=== PATIENT | male | born 1930 | race Two or more races ===

== ENCOUNTER 2018-01-03 14:53 | Inpatient (IN) | payer MEDICARE, OTHER ==
[~2018-01-03] VITALS: Ht 165.1 cm; Wt 84.6 kg
[2018-01-03 14:58] VITALS: Ht 165.1 cm; Wt 84.6 kg
[2018-01-03 16:18] LABS: UA SPECIFIC GRAVITY 1.025 (1.005-1.035); microscopic required? YES; urine erythrocyte 1+ (NEGATIVE)
[2018-01-03 16:25] LABS: BASOPHIL % 0.2 % (0-2); PLATELET COUNT 192 x10^3mcL (130-400)
[2018-01-03 16:27] LABS: AMPHETAMINE QUAL UR NONE DETECTED (See below)
[2018-01-03 16:28] LABS: CALCIUM 8.6 mg/dL (8.5-10.1); CARBON DIOXIDE 24.6 mmol/L (21-32); CHLORIDE SERUM 104 mmol/L (98-107); CREATININE SERUM 1.4 mg/dL (0.7-1.3); GLUCOSE SERUM 155 mg/dL (74-106); POTASSIUM SERUM 3.9 mmol/L (3.5-5.1); SODIUM SERUM 142 mmol/L (136-145)
[2018-01-03 16:29] LABS: RED CELL DISTRIBUTION WIDTH 15.2 % (11.5-14.5)
[2018-01-03 16:40] LABS: ALBUMIN 3.4 g/dL (3.4-5.0); ALKALINE PHOSPHATASE 208 U/L (46-116); ALT/SGPT 193 U/L (16-63); AST/SGOT 402 U/L (15-37); BILIRUBIN TOTAL 3.04 mg/dL (0.20-1.00); FREE T4 1.56 ng/dL (0.76-1.46); MAGNESIUM 2.1 mg/dL (1.8-2.4); TOTAL PROTEIN, SERUM 6.7 g/dL (6.4-8.2)
[2018-01-03 17:21] LABS: LIPASE 6291 IU/L (73-393)
[2018-01-03 18:37] LABS: T3 TOTAL 1.1 ng/mL
[2018-01-03 18:46] LABS: FREE T4 1.55 ng/dL (0.76-1.46); FREE THYROXINE INDEX 3.9 ug/dL (1.4-4.5); T4(THYROXINE) 10.3 ug/dL (4.7-13.3)
[2018-01-03 18:59] LABS: CHOLESTEROL/HDL RATIO 3.2; PHOSPHOROUS 3.4 mg/dL (2.5-4.9)
[2018-01-03 19:11] VITALS: BP 124/65
[2018-01-04 05:11] VITALS: BP 103/65
[2018-01-04 06:53] LABS: BASOPHIL % 0.1 % (0-2); PLATELET COUNT 182 x10^3mcL (130-400)
[2018-01-04 07:00] LABS: CALCIUM 8.3 mg/dL (8.5-10.1); CARBON DIOXIDE 25.4 mmol/L (21-32); CHLORIDE SERUM 105 mmol/L (98-107); CREATININE SERUM 1.3 mg/dL (0.7-1.3); GLUCOSE SERUM 152 mg/dL (74-106); PHOSPHOROUS 2.8 mg/dL (2.5-4.9); POTASSIUM SERUM 3.9 mmol/L (3.5-5.1); SODIUM SERUM 140 mmol/L (136-145)
[2018-01-04 07:03] LABS: RED CELL DISTRIBUTION WIDTH 14.8 % (11.5-14.5)
[2018-01-04 09:10] VITALS: BP 104/66
[2018-01-04 14:24] VITALS: BP 148/73
[2018-01-04 17:12] VITALS: BP 120/71
[2018-01-04 20:28] VITALS: BP 119/69
[2018-01-05 04:47] VITALS: BP 127/81
[2018-01-05 06:26] LABS: BASOPHIL % 0.3 % (0-2); PLATELET COUNT 158 x10^3mcL (130-400)
[2018-01-05 06:57] LABS: ALBUMIN 2.6 g/dL (3.4-5.0); ALKALINE PHOSPHATASE 156 U/L (46-116); ALT/SGPT 171 U/L (16-63); AMYLASE 48 U/L (25-115); AST/SGOT 139 U/L (15-37); BILIRUBIN TOTAL 2.1 mg/dL (0.20-1.00); CALCIUM 7.8 mg/dL (8.5-10.1); CARBON DIOXIDE 25.3 mmol/L (21-32); CHLORIDE SERUM 105 mmol/L (98-107); CREATININE SERUM 1.1 mg/dL (0.7-1.3); GLUCOSE SERUM 131 mg/dL (74-106); LIPASE 179 IU/L (73-393); POTASSIUM SERUM 3.7 mmol/L (3.5-5.1); SODIUM SERUM 138 mmol/L (136-145); TOTAL PROTEIN, SERUM 5.8 g/dL (6.4-8.2)
[2018-01-05 09:44] VITALS: BP 117/81
[2018-01-05 14:01] VITALS: BP 128/82
[2018-01-05 17:10] VITALS: BP 141/81
[2018-01-05 20:23] VITALS: BP 146/86
[2018-01-06 06:04] LABS: BASOPHIL % 0.4 % (0-2); PLATELET COUNT 167 x10^3mcL (130-400)
[2018-01-06 06:19] LABS: ALBUMIN 2.6 g/dL (3.4-5.0); ALKALINE PHOSPHATASE 187 U/L (46-116); ALT/SGPT 117 U/L (16-63); AST/SGOT 70 U/L (15-37); BILIRUBIN DIRECT 0.79 mg/dL (0.0-0.2); BILIRUBIN TOTAL 1.3 mg/dL (0.20-1.00); CALCIUM 7.8 mg/dL (8.5-10.1); CARBON DIOXIDE 24.6 mmol/L (21-32); CHLORIDE SERUM 105 mmol/L (98-107); GLUCOSE SERUM 108 mg/dL (74-106); LACTIC DEHYDROGENASE (LDH) 146 U/L (100-190); POTASSIUM SERUM 3.8 mmol/L (3.5-5.1); SODIUM SERUM 139 mmol/L (136-145); TOTAL PROTEIN, SERUM 5.9 g/dL (6.4-8.2)
[2018-01-06 06:37] LABS: RED CELL DISTRIBUTION WIDTH 14.9 % (11.5-14.5)
[2018-01-06 11:19] VITALS: BP 134/74
[2018-01-06 13:11] VITALS: BP 133/83
[2018-01-06 16:01] VITALS: BP 136/89
[2018-01-06 21:45] VITALS: BP 138/74
[2018-01-07 05:59] VITALS: BP 168/76
[2018-01-07 06:38] LABS: BASOPHIL % 0.3 % (0-2); PLATELET COUNT 187 x10^3mcL (130-400)
[2018-01-07 06:41] LABS: RED CELL DISTRIBUTION WIDTH 15.2 % (11.5-14.5)
[2018-01-07 06:45] LABS: ALKALINE PHOSPHATASE 184 U/L (46-116); ALT/SGPT 108 U/L (16-63); AST/SGOT 59 U/L (15-37); BILIRUBIN TOTAL 1.37 mg/dL (0.20-1.00); CALCIUM 8.6 mg/dL (8.5-10.1); CARBON DIOXIDE 24.2 mmol/L (21-32); CHLORIDE SERUM 105 mmol/L (98-107); CREATININE SERUM 1.2 mg/dL (0.7-1.3); GLUCOSE SERUM 136 mg/dL (74-106); POTASSIUM SERUM 3.9 mmol/L (3.5-5.1); SODIUM SERUM 140 mmol/L (136-145); TOTAL PROTEIN, SERUM 6.4 g/dL (6.4-8.2)
[2018-01-07 06:46] LABS: ALBUMIN 2.6 g/dL (3.4-5.0)
[2018-01-07 10:40] VITALS: BP 152/77
[2018-01-07 12:38] VITALS: BP 129/78
[2018-01-07 15:39] VITALS: BP 129/78
== END 2018-01-07 18:55 | disposition home or self-care (01) | DRG 417 ==
LOC: ED 14:53 → DU 17:30
PROVIDERS: Emergency Medicine; Family Medicine; Internal Medicine; Surgery
PROC: 0FC98ZZ Extirpation of Matter from Common Bile Duct, Via Natural or Artificial Opening Endoscopic (ICD-10-PCS; 2018-01-04)
PROC: 0F798ZZ Dilation of Common Bile Duct, Via Natural or Artificial Opening Endoscopic (ICD-10-PCS; principal; 2018-01-04 09:00)
PROC: 0FT44ZZ Resection of Gallbladder, Percutaneous Endoscopic Approach (ICD-10-PCS; 2018-01-06)
DX: K85.10 Biliary acute pancreatitis without necrosis or infection (principal); N17.0 Acute kidney failure with tubular necrosis; E11.65 Type 2 diabetes mellitus with hyperglycemia; K44.9 Diaphragmatic hernia without obstruction or gangrene; K80.50 Calculus of bile duct without cholangitis or cholecystitis without obstruction; E66.9 Obesity, unspecified; Z68.26 Body mass index [BMI] 26.0-26.9, adult
CPT/HCPCS: 36600; 43262; 82962; 83880; 84439; 94150; C1769; G0480; J1170; J1610; J2270; J2405; J2543; J2704; J2710; J3010; J3490; J7030; J7120; Q0092; Q9967

== ENCOUNTER 2018-07-14 10:35 | Inpatient (IN) | payer MEDICARE, OTHER ==
[~2018-07-14] VITALS: Ht 172.7 cm; Wt 81.9 kg
[2018-07-14 10:46] VITALS: Ht 172.7 cm; Wt 81.9 kg
--- NOTE | 2018-07-14 11:08 | NUR ---
DR SALAZAR, ERP, AT BEDSIDE.
--- NOTE | 2018-07-14 11:27 | NUR ---
MEDICATED ITH MS /TORADOL FOR ABD.PAIN
[2018-07-14 11:35] LABS: BASOPHIL % 0.4 % (0-2); PLATELET COUNT 355 x10^3mcL (130-400)
[2018-07-14 11:36] LABS: RED CELL DISTRIBUTION WIDTH 16.4 % (11.5-14.5)
[2018-07-14 11:46] LABS: CALCIUM 9.1 mg/dL (8.5-10.1); CARBON DIOXIDE 27.6 mmol/L (21-32); CHLORIDE SERUM 105 mmol/L (98-107); CREATININE SERUM 1.3 mg/dL (0.7-1.3); GLUCOSE SERUM 121 mg/dL (74-106); POTASSIUM SERUM 4.2 mmol/L (3.5-5.1); SODIUM SERUM 139 mmol/L (136-145)
[2018-07-14 11:50] LABS: ALBUMIN 3.3 g/dL (3.4-5.0); ALKALINE PHOSPHATASE 128 U/L (46-116); ALT/SGPT 18 U/L (16-63); AST/SGOT 19 U/L (15-37); BILIRUBIN TOTAL 0.5 mg/dL (0.20-1.00); LIPASE 156 IU/L (73-393); TOTAL PROTEIN, SERUM 7.7 g/dL (6.4-8.2)
--- NOTE | 2018-07-14 12:22 | NUR ---
NO BLOOD CULTURES ORDER BY ERP PRIOR TO ANTIBIOTIC MED ADMINSTRATION AT THIS TIME.
--- NOTE | 2018-07-14 12:22 | NUR ---
NO ORDERS FOR BLOOD CULTURES AT THIS TIME BY ERP PRIOR TO ANTIBIOTIC MED ADMINISTRATION.
--- NOTE | 2018-07-14 13:36 | NUR ---
PT SLEEPING COMFORTABLY IN BED. EASILY AROUSABLE BY VERBAL STIMULI. NO CHANGE IN STATUS AT THIS TIME. AAOX3, VSS, FOLLOWS SIMPLE COMMANDS. BREATHING EASY AND UNLABORED. NO SIGNS OF DISTRESS AT THIS TIME.
--- NOTE | 2018-07-14 13:58 | NUR ---
PT ADMITTED. ROOM #218A ASSGINGED. REPORT GIVEN TO MARY VERONICA. OPPORTUNITY GIVEN TO ASK QUESTIONS. PT BEING TRANSPORTED TO FLOOR BY RN.
--- NOTE | 2018-07-14 14:02 | NUR ---
PT NOTED TO HAVE A HAT X1, SHOES, PANTS, BELT, RADHA, SHIRT, JACKET AND A CANE.
--- NOTE | 2018-07-14 14:06 | NUR ---
Colleen Young RN - 07/14/18 @ 1405 VOIDED FREELY SENT TO LAB
[2018-07-14 14:27] LABS: UA SPECIFIC GRAVITY >=1.030 (1.005-1.035); microscopic required? YES; urine erythrocyte NEGATIVE (NEGATIVE)
--- NOTE | 2018-07-14 14:42 | NUR ---
RECEIVED PT ED BY GIBSON WITH PT'S SON AT BED SIDE. PT AND PT'S SON BOTH ITALIAN SPEAKING ONLY. PT KHOI ROSEBUD. WITH REPTILE KEEPER KIT TRANSLATION, PT IS ALERT, AWAKE, ORIENTED TO PERSON AND PLACE, UNABLE TO TELL TIME INCLUDING HIS BOD. HOWEVER, PT'S SON CONFIRMED PT IS NOT CONFUSED AND ABLE TO MAKE NEEDS KNOWN. PT'S O2 SAT 92% ON RA, DENIED SOB, 1L O2 VIA NC PROVIDED. PT'S SON REPORTED PT'S BASELINE IS PT AMBULATORY WITH CANE. PT DENIED ABD PAIN, N/V AT THIS TIME. IV SITE PATENT, INTACT. ANTIBIOTIC VANCO IS INFUSING. SKIN INTACT. PT'S VS: TEMP 97.6, H/H 133/81, O2 SAT 92% ON RA, HR 85 BPM. WILL CONTINUE TO MONITOR.
[2018-07-14 14:45] VITALS: BP 152/100
[2018-07-14 16:08] VITALS: BP 132/81
[2018-07-14 16:45] VITALS: BP 116/77
--- NOTE | 2018-07-14 16:53 | NUR ---
PT'S FAMILY MEMBERS AT BED SIDE. PT STAYED CALM, DENIED ABD PAIN, SOB AT THIS TIME.
--- NOTE | 2018-07-14 19:00 | NUR ---
RECEIVED PT IN BED COMFORTABLY RESTING WITH FAMILY AT BEDSIDE. NO ACUTE RESPIRATORY DISTRESS NOTED. NO C/O PAIN. IV SITE PATENT AND INTACT. BED IN LOWEST POSITION,CALL LIGHT WITHIN REACH. WILL CONTINUE TO MONITOR.
--- NOTE | 2018-07-14 19:54 | NUR ---
PT'S SON AT BED SIDE. ENDORSE PT CARE TO RECEIVING NURSE. PT REST ON BED COMFORTABLLY, NO COMPLAIN OF PAIN. PT STAYING CALM AND COOPERATE WITH CARE AT THIS TIME.
[2018-07-14 21:41] VITALS: BP 133/82
--- NOTE | 2018-07-15 05:07 | NUR ---
PT ASLEEP. NO DISTRESS NOTED. NO C/O PAIN. SON AT BEDSIDE. BED IN LOWEST POSITION,CALL LIGHT WITHIN REACH. WILL CONTINUE TO MONITOR.
[2018-07-15 05:51] VITALS: BP 142/86
[2018-07-15 06:34] LABS: BASOPHIL % 0.4 % (0-2); PLATELET COUNT 316 x10^3mcL (130-400)
[2018-07-15 06:43] LABS: CALCIUM 8.6 mg/dL (8.5-10.1); CARBON DIOXIDE 30.4 mmol/L (21-32); CHLORIDE SERUM 107 mmol/L (98-107); CREATININE SERUM 1.5 mg/dL (0.7-1.3); GLUCOSE SERUM 107 mg/dL (74-106); MAGNESIUM 2.2 mg/dL (1.8-2.4); POTASSIUM SERUM 4.4 mmol/L (3.5-5.1); SODIUM SERUM 139 mmol/L (136-145)
[2018-07-15 07:19] LABS: RED CELL DISTRIBUTION WIDTH 15.5 % (11.5-14.5)
--- NOTE | 2018-07-15 07:28 | NUR ---
CARE ENDORSED TO DAY NURSE MI.
--- NOTE | 2018-07-15 08:54 | NUR ---
PT RECEIVING CHEST U/S AT THIS TIME.
[2018-07-15] MEDS ORDERED: LIPI20 PO (09:04)
[2018-07-15] MEDS ORDERED: EPZICOM1 TAB (09:05)
[2018-07-15] MEDS ORDERED: FLO4 PO (09:05)
--- NOTE | 2018-07-15 09:25 | NUR ---
DUE MEDS GIVEN. B/P 131/77 (95), HR 89. PT DENIES PAIN OR DISCOMFORT AT THIS TIME. RESP EVEN AND UNLABORED. NO DISTRESS NOTED. FAMILY AT BEDSIDE. CALL LIGHT WITHIN REACH.
--- NOTE | 2018-07-15 09:28 | NUR ---
Nutrition note: Nursing trigger received for "unable to ingest diet for age" on 07/15/18. Pt. admitted with PNA and pleural effusion per H and P documentations. Pt. currently on regular diet, and has good tolerance to diet order without GI distress. On a regular diet at home. Does not meet high risk criteria and will be assessed as moderate risk, with initial assessment due 07/18-07/20/18.
[2018-07-15 10:09] VITALS: BP 131/77
--- NOTE | 2018-07-15 10:31 | NUR ---
PT RECEIVING U/S GUIDED PARACENTESIS AT THIS TIME.
--- NOTE | 2018-07-15 10:58 | NUR ---
ECHOCARADIOGRAM PENDING-HAVING PROCEDURE
--- NOTE | 2018-07-15 11:11 | NUR ---
PT S/P U/S GUIDED THORACENTESIS. VS: 98.3, 24, 93, 123/81, O2 SAT 94% ON 2L N/C. PT DENIES PAIN OF DISCOMFORT AT THIS TIME. NO DISTRESS NOTED.
--- NOTE | 2018-07-15 11:15 | NUR ---
PT IS S/P U/S GUIDED PARACENTESIS. TOTAL FLUID TAKEN OUT =1850ML. VS: 98.3, 91, 28, 123/82, O2 SAT 94% ON O2 N/C AT 2LPM. NO SOB OR COUGH NOTED. PT DENIES PAIN OR DISCOMFORT AT THIS TIME. CALL LIGHT WITHIN REACH. WILL CONTINUE TO MONITOR. FAMILY AT BEDSIDE.
--- NOTE | 2018-07-15 11:30 | NUR ---
PT S/P U/S GUIDED THORACENTESIS. VS: 98.1, 24, 93, 121/81, O2 SAT 94% ON 2L N/C. PT DENIES PAIN OF DISCOMFORT AT THIS TIME. NO DISTRESS NOTED. CALL LIGHT WITHIN REACH.
--- NOTE | 2018-07-15 11:45 | NUR ---
PT S/P U/S GUIDED THORACENTESIS. VS: 98.3, 24, 95, 120/77, O2 SAT 94% ON 2L N/C. PT DENIES PAIN OF DISCOMFORT AT THIS TIME. NO DISTRESS NOTED.
--- NOTE | 2018-07-15 12:00 | NUR ---
PT S/P U/S GUIDED THORACENTESIS. VS: 98.2, 22, 93, 122/79, O2 SAT 95% ON 2L N/C. PT DENIES PAIN OF DISCOMFORT AT THIS TIME. NO DISTRESS NOTED.
[2018-07-15 12:08] LABS: SOURCE FLUID PLEURAL
[2018-07-15 12:24] VITALS: BP 108/65
--- NOTE | 2018-07-15 12:30 | NUR ---
PT S/P U/S GUIDED THORACENTESIS. VS: 97.6, 20, 82, 108/65, O2 SAT 98% ON 2L N/C. PT DENIES PAIN OF DISCOMFORT AT THIS TIME. NO DISTRESS NOTED.
--- NOTE | 2018-07-15 13:00 | NUR ---
PT S/P U/S GUIDED THORACENTESIS. VS: 97.8, 20, 85, 111/69, O2 SAT 98% ON 2L N/C. PT DENIES PAIN OF DISCOMFORT AT THIS TIME. NO DISTRESS NOTED.
--- NOTE | 2018-07-15 14:18 | NUR ---
PT EVAL COMPLETED. THERAPIST STATED PT WILL RECEIVE PT THERAPY AND WILL RECOMMMEND PT HOME HEALTH.
--- NOTE | 2018-07-15 15:00 | NUR ---
PT IS VISITING WITH FAMILY, IN BED, NO S/S OF DISTRESS NOTED. THOROCENTESIS SITE ON R BACK COVERED WITH CDI DRESSING. DENIES PAIN OR DISCOMFORT AT THIS TIME. CALL LIGHT WITHIN REACH.
[2018-07-15 17:30] VITALS: BP 113/80
--- NOTE | 2018-07-15 17:44 | NUR ---
DUE MED GIVEN. TYLENOL 650MG PO GIVEN FOR LEFT ABDOMINAL PAIN 10/07. ABDOMEN ROUND, SOFT, NONTENDED, NONDISTENDED. PT HAD LARGE FORMED BOWEL MOVEMENT IN THE AFTERNOON. WILL CONTINUE TO MONITOR. CALL LIGHT WITHIN REACH. FAMILY AT BEDSIDE.
--- NOTE | 2018-07-15 18:22 | NUR ---
PT IS AAOX2. FOLLOWS COMMANDS. RESP EVEN AND UNLABORED. R BACK THORACENTESIS SITE COVERED WITH CDI BANDAID. NO DRAINAGE OR S/S OF INFECTION NOTED. TELE [address] READING NSR. IV CATH NS LOCKED, PATENT WITH NO S/S OF INFECTION OR INFILTRATION AT SITE. PT DENIES PAIN OR DISCOMFORT AT THIS TIME. CALL LIGHT WITHIN REACH. FAMILY AT BED SIDE.
--- NOTE | 2018-07-15 20:00 | NUR ---
RECEIVED PT IN BED, A/O X2, CONFUSED AT TIMES, ABLE TO FOLLOW SIMPLE COMMANDS. RESP. EVEN AND UNLABORED, 02 AT 2L/MIN VIA NC, SAT. 95% , NO ACUTE DISTRESS NOTED. AFIB ON THE MONITOR, DENIES CHEST PAIN OR ANY DISCOMFORT AT THIS TIME. HL TO RAC , INTACT AND PATENT. WITH GEN. WEAKNESS, NEEDS ASSIST. VOIDING FREELY. CALL LIGHT WITHIN REACH. WILL CONTINUE TO MONITOR.
[2018-07-15 20:51] VITALS: BP 96/60
--- NOTE | 2018-07-16 00:05 | NUR ---
PULLED OUT IV, NEW IV SITE RE-INSERTED TO RT HAND WITH #22G ANGIO. CATH. WILL CONTINUE TO MONITOR.
--- NOTE | 2018-07-16 01:13 | NUR ---
AWAKE, REQUESTING TYLENOL FOR ABD. PAIN, MEDICATED ORDERED. WILL CONTINUE TO MONITOR.
[2018-07-16 05:18] VITALS: BP 116/75
--- NOTE | 2018-07-16 06:25 | NUR ---
AFEBRILE AND VITAL SIGNS STABLE. NO COMPLAINTS OF PAIN OR ANY DISCOMFORT NOTED AT THIS TIME. RESP. EVEN AND UNLABORED, ON ROOM AIR AT THIS TIME, NO ACUTE DISTRESS NOTED. REMAINS AFIB ON THE MONITOR, DENIES CP OR PRESSURE. DUE MEDS GIVEN ORDERED, LINDSAY. WELL. CONFUSED AT TIMES, RE-ORIENTED TO PLACE AND TIME. VOIDS FREELY. CALL LIGHT WITHIN REACH. WILL ENDORSE TO INCOMING NURSE.
[2018-07-16 07:15] LABS: BASOPHIL % 0.7 % (0-2); PLATELET COUNT 327 x10^3mcL (130-400); RED CELL DISTRIBUTION WIDTH 16.3 % (11.5-14.5)
[2018-07-16 07:21] LABS: CALCIUM 8.5 mg/dL (8.5-10.1); CARBON DIOXIDE 27.7 mmol/L (21-32); CHLORIDE SERUM 106 mmol/L (98-107); CREATININE SERUM 1.5 mg/dL (0.7-1.3); GLUCOSE SERUM 104 mg/dL (74-106); POTASSIUM SERUM 4.3 mmol/L (3.5-5.1); SODIUM SERUM 143 mmol/L (136-145)
--- NOTE | 2018-07-16 07:30 | NUR ---
PT IS AAOX2 TO PERSON AND PLACE. CONFUSED AT TIMES. FOLLOWS COMMANDS. DENIES H/A OR DIZZINESS. RESP EVEN AND UNLABORED. LUNG SOUNDS DIMINISHED BILATERAL BASES. ON 02 N/C AT [address] READING AFIB. NO C/O CHEST PAIN, PRESSURE OR PALPITATIONS. R MID-BACK INCISION COVERED WITH CDI BANDAID. NO S/S OF INFECTION NOTED. IV CATH TO RIGHT HAND NS LOCKED, PATENT WITH NO S/S OF INFECTION OR INFILTRATION. SON AT BEDSIDE. FALL PRECAUTIONS IN PLACE. CALL LIGHT WITHIN REACH. BED IN LOW POSITION.
[2018-07-16 08:56] VITALS: BP 94/57
--- NOTE | 2018-07-16 11:00 | NUR ---
REPORTED TO NEVILLE VELEZ NP THAT PT HAS HAD LEFT SIDED ABDOMEN PAIN X2 DAYS. NEVILLE STATED SHE WILL ORDER A KUB. PT MADE AWARE.
--- NOTE | 2018-07-16 12:00 | NUR ---
DUE MED GIVEN. RESP EVEN AND UNLABORED. NO SOB OR COUGH NOTED. PT DENIES PAIN OR DISCOMFORT AT THIS TIME. CALL LIGHT WITHIN REACH.
--- NOTE | 2018-07-16 12:51 | NUR ---
SPOKE WITH DR. MCGARRY WHO STATED THE PATIENT NEEDS DIETARY EDUCATION. REPORTED TO NEVILLE VELEZ NP. RECEIVED ORDER FOR DIETARY CONSULT AND DIETARY SCREENING. ORDER NOTED AND CARRIED OUT. PT AND PT'S FAMILY MADE AWARE.
[2018-07-16 13:07] VITALS: BP 135/82
--- NOTE | 2018-07-16 15:00 | NUR ---
PT IS LAYING IN BED VISTING WITH FAMILY. RESP EVEN AND UNLABORED. PT REMAINS O2 N/C AT 2LPM. NO RESP DISTRESS NOTED. PT DENIES PAIN OR DISCOMFORT AT THIS TIME. CALL LIGHT WITHIN REACH.
[2018-07-16 16:41] VITALS: BP 104/67
--- NOTE | 2018-07-16 18:41 | NUR ---
PT IS AAOX2. TO PERSON AND PLACE. DENIES PAIN OR DISCOMFORT AT THIS TIME. NO DISTRESS NOTED. TELE [address] READING AFIB. IV CATH TO RT HAND NS LOCKED, PATENT WITH NO S/S OF INFECTION OR INFILTRATION. CALL LIGHT WITHIN REACH. SON AT BEDSIDE. WILL ENDORSE ALL CARE TO ONCOMING NOC RN.
[2018-07-16 19:15] VITALS: BP 98/68
--- NOTE | 2018-07-16 19:15 | NUR ---
RECEIVED PT AWAKE ALERT TO NAME AND VERBALLY RESPONSIVE IN GREEK WITH REPORTS OF CONFUSION.BREATHING EASY AND NON-LABORED.TOLERATING ROOMAIR O2 SAT @ 94% NO COUGHING/CONGESTION NOTED.DENIES CHESTPAIN.BP 98/68 MMHG,HR 69.BAND-AID TO MIDBACK S/P THORACENTESIS.FAMILY AT BEDSIDE.WILL CONTINUE TO MONITOR.
[2018-07-16 20:25] VITALS: BP 92/61
--- NOTE | 2018-07-17 04:38 | NUR ---
PT SLEPT WELL WITH FAMILY AT BEDSIDE.BREATHING EASY AND NON-LABORED.O2 @ 2L/MIN VIA N/C.NO ASE NOTED FROM ZOSYN IV ATB.ALL NEEDS MET.WILL CONTINUE TO MONITOR.
[2018-07-17 04:57] VITALS: BP 126/81
[2018-07-17 07:08] LABS: BASOPHIL % 0.4 % (0-2); PLATELET COUNT 294 x10^3mcL (130-400)
--- NOTE | 2018-07-17 07:10 | NUR ---
RECEIVED PATIENT RESTING IN BED COMFORTABLY, A/O X2, REORIENTED TO TIME. TELE #[address], DENIES CHEST PAIN. BREATHING EVEN UNLABBORED ON RA, DENIES SOB, NO DISTRESS NOTED. SKIN IS WARM CDI WTIH IV TO RH H/L INTACT AND PATENT. PATIENT HAD A THORACENTESIS DONE ON 07/15/18 WITH BAND TO MID RIGHT BACK, CDI. PATIENT DENIES ANY PAIN. PATIENT IS CALM WITH CARE, INSTRUCTED TO CALL FOR ASSISTANCE IF NEEDED. SAFETY PRECAUTIONS MAINTAINED. PATIENTS JUAREZ HENNESSY AT BEDSIDE.
[2018-07-17 07:11] LABS: RED CELL DISTRIBUTION WIDTH 16.5 % (11.5-14.5)
[2018-07-17 07:14] LABS: CALCIUM 8.4 mg/dL (8.5-10.1); CARBON DIOXIDE 25.4 mmol/L (21-32); CHLORIDE SERUM 105 mmol/L (98-107); CREATININE SERUM 1.3 mg/dL (0.7-1.3); GLUCOSE SERUM 99 mg/dL (74-106); POTASSIUM SERUM 4.3 mmol/L (3.5-5.1); SODIUM SERUM 139 mmol/L (136-145)
[2018-07-17 09:34] VITALS: BP 112/71
[2018-07-17 09:36] VITALS: BP 112/71
--- NOTE | 2018-07-17 10:20 | NUR ---
PATIENT STABLE FOR DISCHARGE HOME TODAY. DISCHARGE INSTRUCTIONS, BELONGINGS LIST AND EDUCATION GIVEN TO PATIENT AND SON MINOO AT BEDSIDE. SON STATED WILL GO HOME AND BE BACK WITH CLOTHES FOR PATIENT SO HE CAN CHANGE PRIOR TO DISCHARGE. ALL QUESTIONS AND CONCERNS ADDRESSED. SAFETY PRECAUTIONS MAINTAINED. WILL MONITOR.
--- NOTE | 2018-07-17 13:00 | NUR ---
PATIENT STABLE FOR DISCHARGE HOME, JUAREZ HENNESSY AT BEDSIDE. IV TO RH REMOVED, CATH INTACT. ID BANDS REMOVED, TELE MONITOR REMOVED. PATIENT TO BE ASSISTED DOWN TO LOBBY VIA WHEELCHAIR ACCOMPANIED BY SON AND NURSE AID. ALL PERSONAL BELONGINGS SENT HOME WITH PATIENT.
--- NOTE | 2018-07-17 13:35 | NUR ---
Nutrition Education re: diet for GERD was provided to family at bedside. Handouts from [employer] was provided as well as RD's contact information for future nutrition related questions.
== END 2018-07-17 13:05 | disposition home or self-care (01) | DRG 186 ==
LOC: ED 10:35 → DU 13:24 → MU 13:24 → DU 15:09
PROVIDERS: Emergency Medicine; Internal Medicine; ADMIT Internal Medicine
PROC: 0W993ZZ Drainage of Right Pleural Cavity, Percutaneous Approach (ICD-10-PCS; principal; 2018-07-15)
DX: J90 Pleural effusion, not elsewhere classified (principal); J96.01 Acute respiratory failure with hypoxia; I50.31 Acute diastolic (congestive) heart failure; J45.901 Unspecified asthma with (acute) exacerbation; E44.1 Mild protein-calorie malnutrition; I49.3 Ventricular premature depolarization; K21.9 Gastro-esophageal reflux disease without esophagitis; Z68.28 Body mass index [BMI] 28.0-28.9, adult
CPT/HCPCS: 32555; 83880; 97110-GP; 97112-GP; 97116-GP; 97530-GP; C1729; C9113; J0696; J1644; J1885; J2270; J2543; J3370; J7040; J7050; Q0092